=== PATIENT | male | born 1945 ===

== ENCOUNTER → 2018-03-06 | Outpatient (CLI) | payer MEDICARE, OTHER ==
[~2018-03-06] MED LIST: CENTRUM SILVER1 EAC2 PO; CEPH500 PO; Coq-1030 MG PO; GLIM2 PO; HYDCHL25; NAPR500; Naproxen500 M1; OXYACE5T PO; Prinivil10 MG PO; TAMS.4ER PO; TRIHYD253A; [UNRECOGNIZED DRUG - REMARK]
[2018-03-06 12:51] LABS: Source, Urine Clean Catch
[2018-03-06 17:05] LABS: Protein, Urine Random 17.6 mg/dL (0.0-11.9)
[2018-03-06 17:12] LABS: Bacteria Not Seen /hpf; Red Blood Cells, Urine Not Seen /hpf (0-2); Squamous Epithelial Cells Not Seen /hpf (Few); White Blood Cells, Urine Not Seen /hpf (0-5)
== END | disposition home or self-care (01) ==
LOC: OLS 11:15 → LAB SHORT 11:15 → EDSTATUS 12:57
PROVIDERS: Internal Medicine
DX: R94.4 Abnormal results of kidney function studies (principal)
CPT/HCPCS: 81015; 82570; 84156

== ENCOUNTER 2021-11-01 17:11 | Emergency (ER) | payer MEDICARE, OTHER ==
[~2021-11-01] VITALS: Ht 182.9 cm; Wt 115.2 kg
== END 2021-11-01 18:51 | disposition home or self-care (01) ==
LOC: ER 17:11
DX: M79.89 Other specified soft tissue disorders (principal); M79.662 Pain in left lower leg; I10 Essential (primary) hypertension; E11.9 Type 2 diabetes mellitus without complications; Z88.8 Allergy status to other drugs, medicaments and biological substances; Z79.899 Other long term (current) drug therapy; Z87.891 Personal history of nicotine dependence; Z96.642 Presence of left artificial hip joint
CPT/HCPCS: 93971; 99283-25

== ENCOUNTER → 2022-05-03 | Outpatient (CLI) | payer MEDICARE, OTHER | END | disposition home or self-care (01) | LOC: LAB SHORT 13:32 → PLD 13:32 | DX: D22.5 Melanocytic nevi of trunk (principal) | CPT/HCPCS: 88305 ==

== ENCOUNTER → 2022-05-11 | Outpatient (CLI) | payer MEDICARE, OTHER | END | disposition home or self-care (01) | LOC: LAB SHORT 07:34 → PLD 07:34 | DX: D48.5 Neoplasm of uncertain behavior of skin (principal) | CPT/HCPCS: 88305 ==

== ENCOUNTER 2025-08-02 07:52 | Day surgery (SDC) | payer MEDICARE, OTHER ==
[~2025-08-02] VITALS: Ht 182.9 cm; Wt 111.7 kg
[~2025-08-02 07:52] MED LIST changes: +ACTOS30 MG PO; +AMAN100 PO; +CARBIDOPA-LEVO1 EA15 PO
[2025-08-02] MEDS ORDERED: EPINEPhrine HCl 1 MG / ML 30ML Vial ONE (09:41)
[2025-08-02] MEDS ORDERED: Lidocaine 2%-Epineph 1:100000 20 ML MDV ONE (09:41)
[2025-08-02] MEDS ORDERED: Rocuronium Bromide 10 MG/ML 5ML Injection IV ONE (09:55)
[2025-08-02] MEDS ORDERED: Dexamethasone Sod Phos 10 MG/ML 1ML VIAL ONE (10:03)
[2025-08-02] MEDS ORDERED: Ondansetron HCl 2 MG / ML 2ML Vial ONE (10:03)
[2025-08-02] MEDS ORDERED: Oxymetazoline 0.05% Nasal Relief Spray 15mL BTL ONE (10:12)
[2025-08-02] MEDS ORDERED: Sugammadex Sodium 200 MG/2ML SDV (100 MG/ML) ONE (10:21)
[2025-08-02 11:11] VITALS: BP 170/68
--- NOTE | 2025-08-02 11:54 | NUR ---
08/02/25 1154 RUFINO SAUCEDO PT DENIED HAVING PAIN BUT RX WAS NOT FILLED YET AND DR MANTILLA NEEDED TO SEND IT TO A DIFFERENT PHARMACY. PT AND FAMILY ASKED FOR A PAIN PILL PRIOR TO DC TO AVOID PAIN GETTING OUT OF CONTROL IF PHARMACY TOOK TOO LONG FILLING ORDER. OXYCODONE 5MG PO GIVEN PER ORDER GIVEN BY DR MANTILLA
== END 2025-08-02 11:50 | disposition home or self-care (01) ==
LOC: ORSCSDS 07:52
PROVIDERS: Otolaryngology
PROC: 0CBV8ZX Excision of Left Vocal Cord, Via Natural or Artificial Opening Endoscopic, Diagnostic (ICD-10-PCS; principal; 2025-08-02 09:30)
DX: R49.0 Dysphonia (principal); J38.3 Other diseases of vocal cords; I10 Essential (primary) hypertension; E11.9 Type 2 diabetes mellitus without complications; N40.0 Benign prostatic hyperplasia without lower urinary tract symptoms; Z79.899 Other long term (current) drug therapy; Z79.84 Long term (current) use of oral hypoglycemic drugs; Z87.891 Personal history of nicotine dependence; G20.A1 Parkinson's disease without dyskinesia, without mention of fluctuations
CPT/HCPCS: 82947; 88305; 88312; A9270; J0165; J1100; J2405; J2704; J7120